=== PATIENT | female | born 1955 | race Caucasian/White ===

== ENCOUNTER 2019-05-07 20:20 | Emergency (ER) | payer MEDICARE, OTHER ==
[2019-05-07] MEDS ORDERED: FENTANYL CITRATE INJ/PF 100 MCG/2 ML AMPUL IV ONE (23:01)
[2019-05-07] MEDS ORDERED: MAG HYDROX/AL HYDROX/SIMETH SUSP 30 ML UDCUP PO ONE (23:01)
[2019-05-07] MEDS ORDERED: ONDANSETRON HCL INJ/PF 4 MG/2 ML SDV IV ONE (23:01)
[2019-05-07] MEDS ORDERED: METOCLOPRAMIDE HCL ORAL SOLN 10 MG/10 ML UDCUP PO ONE (23:01)
[2019-05-07] MEDS ORDERED: LIDOCAINE 2% VISCOUS SOLN 20 ML UDCUP PO ONE (23:01)
[2019-05-07] MEDS ORDERED: RINGERS SOLUTION,LACTATED 1,000 ML IV ONE (23:03)
--- NOTE | 2019-05-07 23:05 | ER Document Report ---
ED General - General Chief Complaint: Abdominal Pain Stated Complaint: ABDOMINAL PAIN Time Seen by Provider: 05/07/19 22:33 Mode of Arrival: Ambulatory Information source: Patient, Relative, [facility] Records Notes: 64-year-old female with hypertension, hyperlipidemia, reflux, bipolar disorder, OCD, history of C. difficile (approximately 1 month ago), recurrent urinary tract infections presents with complaint of abdominal pain, diarrhea. Patient states diarrhea started 4 days prior to arrival. She states that she was traveling from [place] to here so she was taking Imodium approximately 10 mg/day. She states today she has not had a bowel movement but developed cramping lower abdominal pain and inability to pass gas. Patient denies any nausea, vomiting, fever but admits to this sweats and dry tongue. Patient denies sick contacts. She does report her last urinary tract infection approximately 8 weeks ago but cannot recall what antibiotic she was on. Surgical history includes a cholec ystectomy TRAVEL OUTSIDE OF THE [place] IN LAST 30 DAYS: No - HPI Onset: Other Onset/Duration: Gradual, Persistent Quality of pain: Sharp Severity: Moderate Pain Level: 2 Associated symptoms: Diarrhea, Sweating. denies: Body/muscle aches, Chest pain, Fever, Nausea, Vomiting, Shortness of breath, Sore throat Exacerbated by: Denies Relieved by: Denies Similar symptoms previously: Yes Recently seen / treated by doctor: No - Related Data Allergies/Adverse Reactions: azithromycin [From Zithromax Z-Nikita] Allergy (Severe, Verified 12/24/15 09:09) hurting, aching, n and v Sulfa (Sulfonamide Antibiotics) Allergy (Severe, Verified 12/24/15 09:09) as child Past Medical History - General Information source: Patient, Relative, [facility] Records - Social History Smoking Status: Never Smoker Frequency of alcohol use: None Drug Abuse: None Family History: Reviewed & Not Pertinent - Past Medical History Cardiac Medical History: Reports: Hx Hypertension - on meds Denies: Hx Coronary Artery Disease, Hx Heart Attack Pulmonary Medical History: Denies: Hx Asthma, Hx Bronchitis, Hx COPD, Hx Pneumonia Neurological Medical History: Denies: Hx Cerebrovascular Accident, Hx Seizures GI Medical History: Reports: Hx Gastroesophageal Reflux Disease Musculoskeletal Medical History: Reports Hx Arthritis - osteo Psychiatric Medical History: Reports: Hx Attention Deficit Hyperactivity Disorder, Hx Bipolar Disorder, Hx Depression, Hx Obsessive Compulsive Disorder Past Surgical History: Reports: Hx Cholecystectomy, Hx Hysterectomy - Immunizations Hx Diphtheria, Pertussis, Tetanus Vaccination: No Review of Systems - Review of Systems Notes: REVIEW OF SYSTEMS: CONSTITUTIONAL : Denies fever, chills, Denies recent illness. Denies weight loss, recent hospitalizations. EENT: Denies visual changes, eye pain. Denies sore throat, oral lesions, difficulty swallowing. CARDIOVASCULAR: Denies chest pain. Denies palpitations. Denies lower extremity edema. RESPIRATORY: Denies cough. Denies shortness of breath, wheezing. GASTROINTESTINAL: + abdominal pain and distention. Denies nausea, vomiting, Denies blood in vomitus, stools, or per rectum. Denies black, tarry stools. Denies constipation. GENITOURINARY: Denies difficulty urinating, painful urination, frequency, blood in urine, or vaginal discharge. MUSCULOSKELETAL: Denies back or neck pain or stiffness. Denies joint pain or swelling. SKIN: Denies rash, lesions or sores. HEMATOLOGIC : Denies easy bruising or bleeding. LYMPHATIC: Denies swollen glands. NEUROLOGICAL: Denies confusion or altered mental status. Denies loss of consciousness. Denies dizziness or lightheadedness. Denies headache. Denies weakness or paralysis. Denies problems difficulty with ambulation, slurred speech. Denies sensory loss, numbness, or tingling. Denies seizures. PSYCHIATRIC: Denies anxiety or stress. Denies depression, suicidal ideation, or homicidal ideation. Denies visual or auditory hallucinations. Physical Exam - Vital signs Vitals: Temp Pulse Resp BP Pulse Ox 98.2 F 87 15 162/95 H 96 05/07/19 21:09 05/07/19 21:09 05/07/19 21:09 05/07/19 21:09 05/07/19 21:09 - Notes Notes: PHYSICAL EXAMINATION: GENERAL: Well-appearing, well-nourished and in no acute distress. HEAD: Atraumatic, normocephalic. EYES: Pupils equal round and reactive to light, extraocular movements intact, conjunctiva are normal. ENT: Nares patent, oropharynx clear without exudates. Moist mucous membranes. NECK: Normal range of motion, supple without lymphadenopathy LUNGS: Breath sounds clear to auscultation bilaterally and equal. No wheezes rales or rhonchi. HEART: Regular rate and rhythm without murmurs ABDOMEN: Mild tenderness with palpation to the suprapubic region of the abdomen with mild distention, hyperactive bowel sounds. No guarding, no rebound. No masses appreciated. Female : deferred Musculoskeletal: Normal range of motion, no pitting or edema. No cyanosis. NEUROLOGICAL: Cranial nerves grossly intact. Normal speech, normal gait. Normal sensory, motor exams PSYCH: Normal mood, normal affect. SKIN: Warm, Dry, normal turgor, no rashes or lesions noted. Course - Re-evaluation Re-evalutation: Laboratory 05/07/19 05/07/19 05/08/19 23:40 23:40 01:12 WBC 10.4 RBC 4.85 Hgb 13.6 Hct 39.9 MCV 82 MCH 28.1 MCHC 34.1 RDW 14.0 Plt Count 275 Seg Neutrophils % 66.1 Lymphocytes % 24.8 Monocytes % 6.9 Eosinophils % 1.3 Basophils % 0.9 Absolute Neutrophils 6.9 Absolute Lymphocytes 2.6 Absolute Monocytes 0.7 Absolute Eosinophils 0.1 Absolute Basophils 0.1 Sodium 143.0 Potassium 4.0 Chloride 108 H Carbon Dioxide 23 Anion Gap 12 BUN 17 Creatinine 0.71 Est GFR ( Amer) > 60 Est GFR (Non-Af Amer) > 60 Glucose 101 Calcium 10.3 H Total Bilirubin 0.7 Direct Bilirubin 0.3 Neonat Total Bilirubin Not Reportable Neonat Direct Bilirubin Not Reportable Neonat Indirect Bili Not Reportable AST 25 ALT 22 Alkaline Phosphatase 96 Total Protein 8.1 Albumin 4.7 Lipase 85.2 Urine Color Urine Appearance Urine pH Ur Specific [place] Urine Protein Urine Glucose (UA) Urine Ketones Urine Blood Urine Nitrite Urine Bilirubin Urine Urobilinogen Ur Leukocyte Esterase Urine WBC (Auto) Urine RBC (Auto) Squamous Epi Cells Auto Urine Mucus (Auto) Urine Ascorbic Acid C. difficile Tox (PCR) NEGATIVE 05/08/19 01:12 WBC RBC Hgb Hct MCV MCH MCHC RDW Plt Count Seg Neutrophils % Lymphocytes % Monocytes % Eosinophils % Basophils % Absolute Neutrophils Absolute Lymphocytes Absolute Monocytes Absolute Eosinophils Absolute Basophils Sodium Potassium Chloride Carbon Dioxide Anion Gap BUN Creatinine Est GFR ( Amer) Est GFR (Non-Af Amer) Glucose Calcium Total Bilirubin Direct Bilirubin Neonat Total Bilirubin Neonat Direct Bilirubin Neonat Indirect Bili AST ALT Alkaline Phosphatase Total Protein Albumin Lipase Urine Color YELLOW Urine Appearance CLEAR Urine pH 6.0 Ur Specific [place] 1.009 Urine Protein NEGATIVE Urine Glucose (UA) NEGATIVE Urine Ketones 20 H Urine Blood NEGATIVE Urine Nitrite NEGATIVE Urine Bilirubin NEGATIVE Urine Urobilinogen NEGATIVE Ur Leukocyte Esterase SMALL H Urine WBC (Auto) 5 Urine RBC (Auto) 1 Squamous Epi Cells Auto <1 Urine Mucus (Auto) RARE Urine Ascorbic Acid NEGATIVE C. difficile Tox (PCR) Abdomen/Pelvis CT 05/07/19 00:00 IMPRESSION: 1. No bowel obstruction or perforation. No acute inflammatory changes. 2. No evidence for metastatic disease in the abdomen or pelvis. 3. Previous cholecystectomy, with chronic biliary ductal prominence 4. Significant change in the size of the low-density lesion in the upper pole of the left kidney, 0.7 cm on 12/17/2015 and 1.7 cm today. Consider follow-up renal ultrasound to confirm that this is a benign cyst, especially in view of history of malignancy, unless there are previous outside studies that can confirm this as a benign lesion. Temp Pulse Resp BP Pulse Ox 98.7 F 110 H 20 162/108 H 97 05/08/19 04:06 05/08/19 04:06 05/08/19 04:06 05/08/19 04:06 05/08/19 04:06 05/08/19 04:23 Presentation of an overall well-appearing patient in no acute distress with co mplaints of nausea, diarrhea. This is consistent with likely viral gastroenteritis. Patient has no abdominal tenderness on exam and specifically no tenderness in the RLQ, LLQ, RUQ. Overall well hydrated on exam. Able to tolerate oral intake here in the emergency department. Low clinical suspicion for any acute life-threatening etiology based on exam and history including acute cholecystitis, SBO, appendicitis, nephrolithiasis, or pylonephritis. CMP without evidence of acute hepatitis or significant dehydration. Will plan for discharge at this time with return precautions and followup recommendations. Incidental finding of kidney lesion discussed with the patient and her sister. She was provided a copy of the CAT scan report. C. difficile negative. Patient was evaluated and treated as appropriate for the patient's presenting symptoms and complaint, with consideration of any critical or life threatening conditions that may be associated with their obtained history and exam as noted above. All results were discussed with patient and her sister who is at the bedside. patient provided the opportunity to ask questions, and express concerns. Patient was educated on treatments based on their presumed diagnosis as noted above. At this time we will discharge the patient with return precautions and follow-up recommendations. Verbal discharge instructions given a the bedside. Medication warnings reviewed. Patient is in agreement with this plan and has verbalized understanding of return precautions. After careful consideration I feel that that patient can be safely discharged from the emergency department, they were advised to followup with a primary care physician in 2-3 days. Dictation on this chart was performed using voice recognition software and may result in unintended grammatical, spelling, syntax or errors. - Vital Signs Vital signs: Temp Pulse Resp BP Pulse Ox 98.7 F 110 H 20 162/108 H 97 05/08/19 04:06 05/08/19 04:06 05/08/19 04:06 05/08/19 04:06 05/08/19 04:06 - Laboratory Result Diagrams: 05/07/19 23:40 05/07/19 23:40 Laboratory results interpreted by me: 05/07/19 05/08/19 23:40 01:12 Chloride 108 H Calcium 10.3 H Urine Ketones 20 H Ur Leukocyte Esterase SMALL H - Diagnostic Test Radiology reviewed: Image reviewed, Reports reviewed Discharge - Discharge Clinical Impression: Abdominal cramping Diarrhea Qualifiers: Diarrhea type: unspecified type Qualified Code(s): R19.7 - Diarrhea, unspec ified Condition: Good Disposition: HOME, SELF-CARE Instructions: Abdominal Pain ([facility]), Antispasmodics ([facility]), Diarrhea, Nonspecific ([facility]) Additional Instructions: Follow up with your [id number] hours for further care or return to the ED IMMEDIATELY if symptoms worsen or you have any concerns. If you cannot afford to follow up with your primary care physician a list of low cost clinics have been provided at the end of your discharge papers as well. Most prescribed medications have multiple side effects. The safest thing to do is when filling your prescription speak to your pharmacist regarding possible interactions with your normal home medications and over the counter medications such as Ibuprofen, Tylenol, Benadryl. If you experience any symptoms that cause you discomfort or concern you should discontinue the medication immediately and return to the emergency room or call your primary care physician. The CAT scan of your abdomen showed a lesion on your kidney and recommendation is to follow-up with ultrasound. Prescriptions: Dicyclomine HCl [Bentyl 20 mg Tablet] 20 mg PO QID #20 tablet Ondansetron [Zofran Odt 4 mg Tablet] 1 - 2 tab PO Q4H PRN #15 tab.rapdis PRN Reason: For Nausea/Vomiting Forms: Elevated Blood Pressure
[2019-05-08] LABS: ABSOLUTE BASOPHILS # (AUTO) 0.1 10^3/uL (0.0-0.2); ABSOLUTE EOSINOPHILS # (AUTO) 0.1 10^3/uL (0.0-0.6); ABSOLUTE LYMPHOCYTES (AUTO) 2.6 10^3/uL (0.5-4.7); ABSOLUTE MONOCYTES (AUTO) 0.7 10^3/uL (0.1-1.4); ABSOLUTE NEUT (AUTO) 6.9 10^3/uL (1.7-8.2); BASOPHILS % (AUTO) 0.9 % (0-2); EOSINOPHILS % (AUTO) 1.3 % (0-6); HEMATOCRIT 39.9 % (36.0-47.0); HEMOGLOBIN 13.6 g/dL (12.0-15.5); LYMPHOCYTES % (AUTO) 24.8 % (13-45); MEAN CORPUSCULAR HEMOGLOBIN 28.1 pg (27.0-33.4); MEAN CORPUSCULAR HGB CONC 34.1 g/dL (32.0-36.0); MEAN CORPUSCULAR VOLUME 82 fl (80-97); MONOCYTES % (AUTO) 6.9 % (3-13); PLATELET COUNT 275 10^3/uL (150-450); RED BLOOD COUNT 4.85 10^6/uL (3.72-5.28); SEGMENTED NEUTROPHILS % (AUTO) 66.1 % (42-78); TOTAL CELLS COUNTED % (AUTO) 100 %; WHITE BLOOD COUNT 10.4 10^3/uL (4.0-10.5)
[2019-05-08 00:55] LABS: ALANINE AMINOTRANSFERASE 22 U/L (9-52); ALBUMIN 4.7 g/dL (3.5-5.0); ALKALINE PHOSPHATASE 96 U/L (38-126); ANION GAP 12 (5-19); ASPARTATE AMINO TRANSFERASE 25 U/L (14-36); BILIRUBIN,DIRECT 0.3 mg/dL (0.0-0.4); BILIRUBIN,TOTAL 0.7 mg/dL (0.2-1.3); BLOOD UREA NITROGEN 17 mg/dL (7-20); CALCIUM 10.3 mg/dL (8.4-10.2); CARBON DIOXIDE 23 mmol/L (22-30); CHLORIDE 108 mmol/L (98-107); GLUCOSE 101 mg/dL (75-110); LIPASE 85.2 U/L (23-300); TOTAL PROTEIN 8.1 g/dL (6.3-8.2)
[2019-05-08 01:31] LABS: APPEARANCE,URINE CLEAR; BILIRUBIN,URINE NEGATIVE (NEGATIVE); COLOR,URINE YELLOW; GLUCOSE, URINE NEGATIVE (NEGATIVE); KETONES,URINE 20 mg/dL (NEGATIVE); LEUKOCYTE ESTERASE,URINE SMALL (NEGATIVE); NITRITE,URINE NEGATIVE (NEGATIVE); PROTEIN,URINE NEGATIVE (NEGATIVE); URINE SPECIFIC GRAVITY 1.009; UROBILINOGEN,URINE NEGATIVE mg/dL (<2.0)
--- NOTE | 2019-05-08 02:48 | RADIOLOGY REPORT (SQ) ---
EXAM DESCRIPTION: [facility]: CT ABDOMEN PELVIS WITH IV CONTRAST CLINICAL HISTORY: 64 years Female; abd pain/ constipation h/o c-diff TECHNIQUE: CT of the abdomen and pelvis using intravenous contrast. All CT scans at this facility use dose modulation, iterative reconstruction, and/or weight based dosing when appropriate to reduce radiation dose to as low as reasonably achievable. COMPARISON: CT 12/17/2015 FINDINGS: Lung bases are clear. Right mastectomy has been performed. Abdomen: Liver: Mild intrahepatic ductal prominence, not unusual following cholecystectomy. Gallbladder: Surgically absent. Common bile duct 8 mm, similar to prior exam. Pancreas:Within normal limits Spleen:Within normal limits Right kidney:No hydronephrosis. No focal lesion. Left kidney: A low-density lesion in the upper pole is 1.7 cm diameter, previously 0.7 cm. No hydronephrosis. Adrenal glands:Within normal limits Vascular structures:Within normal limits Pelvis: Small bowel: Oral contrast is seen scattered throughout the small bowel, with no evidence for obstruction. Appendix:Within normal limits Colon: Oral contrast is also seen throughout the colon, with no evidence for obstruction. No free intraperitoneal fluid or air. Bones: Mild degenerative changes in the lumbar spine are similar to prior study. No suspicious lytic or blastic bone lesions. Bladder: Unremarkable. Uterus is not identified. No pelvic adenopathy. IMPRESSION: 1. No bowel obstruction or perforation. No acute inflammatory changes. 2. No evidence for metastatic disease in the abdomen or pelvis. 3. Previous cholecystectomy, with chronic biliary ductal prominence 4. Significant change in the size of the low-density lesion in the upper pole of the left kidney, 0.7 cm on 12/17/2015 and 1.7 cm today. Consider follow-up renal ultrasound to confirm that this is a benign cyst, especially in view of history of malignancy, unless there are previous outside studies that can confirm this as a benign lesion.
[2019-05-08] MEDS ORDERED: DICYCLOMINE HCL 20 MG TABLET PO ONE (03:30)
[2019-05-08 04:11] VITALS: BP 162/108
== END 2019-05-08 04:15 | disposition home or self-care (01) ==
LOC: ER 20:20
DX: R10.9 Unspecified abdominal pain (principal); R19.7 Diarrhea, unspecified; R11.0 Nausea; R61 Generalized hyperhidrosis; I10 Essential (primary) hypertension; Z90.49 Acquired absence of other specified parts of digestive tract; Z90.710 Acquired absence of both cervix and uterus; Z88.2 Allergy status to sulfonamides
CPT/HCPCS: 99284; 96361; 51701; 96374; 96375; 36415; 83690; 85025; 80053; 81001; 87493; 74177; A9270 ×2; J3010; J3490; J2405; J7120